=== PATIENT | female | born 1980 | race African-American/Black ===

== ENCOUNTER 2018-01-03 18:44 | Emergency (ER) | payer MEDICAID ==
[~2018-01-03] VITALS: Ht 180.3 cm; Wt 138.8 kg
[~2018-01-03 18:44] MED LIST: IBUPROFEN800 MG ORAL; NITROFURANTOIN100 M2 ORAL; NKM; ONDANSETRON ODT4 MG ORAL; PRENATA CHEWAB1 EACH PO
[2018-01-03] MEDS ORDERED: Tylenol #3 tab (300mg/30mg) ORAL ONE (20:00)
[2018-01-03] MEDS ORDERED: LIDODERM700 M1 TOPIC (20:53)
[2018-01-03] MEDS ORDERED: ACETAMINOPHEN-1 EAC1 ORAL (20:53)
[2018-01-03 21:07] VITALS: BP 120/78
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
== END 2018-01-03 21:15 | disposition home or self-care (01) ==
LOC: EMR 19:44
DX: M54.5 Low back pain (principal); R51 Headache; V43.62XA Car passenger injured in collision with other type car in traffic accident, initial encounter; Y92.488 Other paved roadways as the place of occurrence of the external cause
CPT/HCPCS: 99283

== ENCOUNTER 2019-11-10 09:35 | Emergency (ER) | payer MEDICAID ==
[~2019-11-10] VITALS: Ht 180.3 cm; Wt 135.2 kg
[~2019-11-10 09:35] MED LIST changes: +ACETAMINOPHEN-1 EAC1 ORAL; +LIDODERM700 M1 TOPIC
--- NOTE | 2019-11-10 09:48 | NUR ---
ED Nurse Note: Patient walked in to ER c/o bump on the posterior thigh x 5 days; reports no redness or pain. Patient stated she 10 weeks patient, present calm, VSS at this time.
[2019-11-10 09:50] VITALS: BP 133/73
--- NOTE | 2019-11-10 10:00 | Emergency Room Report ---
History of Present Illness General Chief Complaint: Skin Rash/Abscess Source: Patient Present Illness HPI Disclaimer: Please note that this report is being documented using DRAGON technology. This can lead to erroneous entry secondary to incorrect interpretation by the dictating instrument. HPI: 39-year-old female presents for evaluation of swelling on the left leg. She noticed it 5 days ago. Reports a nontender soft mass on the leg that she never noticed before. Just wants to know what it is. Denies recent itching, skin breakdown, tearing, injury, fever, chills. 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 No other complaints or concerns at this time Allergies: Coded Allergies: No Known Allergies (Unverified , 08/02/14) COVID-19 Screening Contact w/high risk pt: No Recent Travel to affected area: No Experienced COVID-19 symptoms?: No COVID-19 Testing performed LOCKSTITCH BINDER: No Patient History Last Menstrual Period: 2 months ago Now: Yes : 8 Para: 1 Nursing Documentation-PMH Past Medical History: No Stated History Review of Systems All Other Systems: negative except mentioned in HPI Physical Exam Vital Signs Date Time Temp Pulse Resp B/P (MAP) Pulse Ox O2 Delivery O2 Flow Rate FiO2 11/10/19 09:42 98.4 81 15 133/73 (93) 99 Room Air General: Awake and alert, no acute distress HEENT: NC/AT. EOMI. Resp: Normal work of breathing Skin: There is a 3 x 3 cm soft mobile nontender raised mass palpable over the posterior aspect of the left thigh. No fluctuance. No overlying erythema. No skin breakdown. No tenderness. No edema. MSK: Normal tone and bulk. Moving all extremities. No obvious deformity. Neuro: Awake and alert. Mentating appropriately Sp02 EP Interpretation: reviewed Medical Decision Making Diagnostic Impression: Primary Impression: Soft tissue swelling Additional Impression: Lipoma ER Course Is a 39-year-old female presenting for evaluation of soft tissue swelling over the left leg. Physical exam and bedside ultrasound are consistent with a lipoma. No evidence of abscess, cellulitis, infectious skin pathology. I do not believe the patient requires emergent labs or imaging at this time. It is not causing her any discomfort at this time, she simply wanted to know what it was. I advised her that it may enlarge and cause her more discomfort that she should discuss with a general surgeon for possible excision otherwise may follow -up with her PMD. She understands and agrees with treatment plan. Diagnostic POCUS Bedside Ultrasound Diagnostics: Bedside US Exam performed: Soft Tissue Limited Indication: Abcess/Cellulitis Number of Views: Limited Interpreted by Emergency Physi: Yes Soft Tissue Limited Findings: No fluid collections, No abcess, No cobblestone appearance, No foreign body, Other - Soft tissue mass consistent with lipoma Impression: Other - Lipoma, no evidence of infection Electronically Signed by: Electronically signed by Dr. Bismark Martin Last Vital Signs Date Time Temp Pulse Resp B/P (MAP) Pulse Ox O2 Delivery O2 Flow Rate FiO2 11/10/19 09:50 98.4 15 133/73 99 Room Air 11/10/19 09:42 81 Disposition: HOME, SELF-CARE Condition: Stable Patient Instructions: Breast Self-Awareness Additional Instructions: Please follow-up with a primary care provider to discuss today's findings. Your exam is most consistent with a lipoma which may be evaluated by your PMD and a general surgeon if you wish for surgical removal. Return to the emergency department any new or worsening symptoms. Bismark Martin MD Nov 10, 2019 10:00
--- NOTE | 2019-11-10 10:05 | NUR ---
ED Nurse Note: Pt cleared by health care Provider for discharge. DC instructions/prescription was given and explained to pt and verbalized understanding of teachings. All medical deviecs such as ID band removed. Pt is AAO x4, ambulatory and left with all personal belongings.
== END 2019-11-10 10:04 | disposition home or self-care (01) ==
LOC: EMR 09:55
DX: O26.891 Other specified pregnancy related conditions, first trimester (principal); R22.42 Localized swelling, mass and lump, left lower limb; D17.24 Benign lipomatous neoplasm of skin and subcutaneous tissue of left leg; Z3A.00 Weeks of gestation of pregnancy not specified
CPT/HCPCS: 99282

== ENCOUNTER 2019-11-18 23:49 | Emergency (ER) | payer MEDICAID ==
[~2019-11-18] VITALS: Ht 180.3 cm; Wt 135.2 kg
--- NOTE | 2019-11-19 00:09 | NUR ---
ED Nurse Note: Pt ambulated to ED from home c/o bright red vaginal bleeding and 10/10 abdominal pain since 30 mins ago. Pt is 12 weeks . Pt denies trauma. VSS. Pt is A&Ox4. Pt placed on cardiac specialist
[2019-11-19] MEDS ORDERED: RHO (D) Immune Globulin 1500 Units IM ONE (00:30)
--- NOTE | 2019-11-19 00:30 | Emergency Room Report ---
History of Present Illness General Chief Complaint: Complications Source: Patient Present Illness HPI Patient is a 39-year-old female who presents after increased vaginal bleeding. She reports having onset of symptoms approximate 30 minutes prior to arrival. Prior history of Rh-. G9, P1 at 13 weeks. Reports having some abdominal cramping. Denies any prior bleeding episodes. She reports having recent ultrasound which was seen as normal. She is followed at [facility] and is scheduled to deliver at [facility]. Allergies: Coded Allergies: No Known Allergies (Unverified , 08/02/14) COVID-19 Screening Contact w/high risk pt: No Recent Travel to affected area: No Experienced COVID-19 symptoms?: No COVID-19 Testing performed LEGAL INTERNSHIP: No Patient History Past Medical History: see triage record Now: Yes : 9 Para: 1 Reviewed Nursing Documentation: PMH: Agreed; PSxH: Agreed Nursing Documentation-PMH Past Medical History: No Stated History Review of Systems All Other Systems: negative except mentioned in HPI Physical Exam Vital Signs Date Time Temp Pulse Resp B/P (MAP) Pulse Ox O2 Delivery O2 Flow Rate FiO2 11/18/19 23:53 98.1 76 18 116/84 (95) 100 Room Air Sp02 EP Interpretation: reviewed, normal General Appearance: normal inspection, well appearing, no apparent distress, alert, GCS 15, obese Head: atraumatic ENT: normal ENT inspection, hearing grossly normal, normal voice Neck: normal inspection, full range of motion, supple, no bony tend Respiratory: normal inspection, lungs clear, normal breath sounds, no respiratory distress, no retraction, no wheezing Cardiovascular #1: regular rate, rhythm, no edema Gastrointestinal: normal inspection, normal bowel sounds, non tender, soft, no guarding, no hernia Genitourinary: no CVA tenderness Musculoskeletal: normal inspection, back normal, normal range of motion Neurologic: alert, motor strength/tone normal, estimate clerk III-XII nml as tested, oriented x3, responsive, speech normal, normal inspection Psychiatric: normal inspection, judgement/insight normal, mood/affect normal Medical Decision Making Diagnostic Impression: Primary Impression: Threatened ER Course Patient presented for abdominal pain. Differential diagnosis include was not limited to , miscarriage, Rh immunization among others. Because of complexity of patient's case laboratory tests and imaging studies were ordered.Laboratory testing showed adequate hemoglobin. Pelvic ultrasound showed intrauterine approximately 12 weeks. Patient was advised to follow-up with her TRAVEL MANAGER for further evaluation and treatment. She advised to return if worse or increased bleeding. This medical record is generated with [employer] sales communications manager software. There may be some sales communications manager discrepancies related to use of this software Labs Test 11/19/19 00:30 11/19/19 00:48 White Blood Count 11.3 K/UL (4.8-10.8) Red Blood Count 3.84 M/UL (4.20-5.40) Hemoglobin 11.5 G/DL (12.0-16.0) Hematocrit 35.4 % (37.0-47.0) Mean Corpuscular Volume 92 FL (80-99) Mean Corpuscular Hemoglobin 30.0 PG (27.0-31.0) Mean Corpuscular Hemoglobin Concent 32.5 G/DL (32.0-36.0) Red Cell Distribution Width 12.4 % (11.6-14.8) Platelet Count 230 K/UL (150-450) Mean Platelet Volume 8.0 FL (6.5-10.1) Neutrophils (%) (Auto) 68.8 % (45.0-75.0) Lymphocytes (%) (Auto) 23.2 % (20.0-45.0) Monocytes (%) (Auto) 6.4 % (1.0-10.0) Eosinophils (%) (Auto) 1.1 % (0.0-3.0) Basophils (%) (Auto) 0.5 % (0.0-2.0) Prothrombin Time 9.9 SEC (9.30-11.50) Prothromb Time International Ratio 0.9 (0.9-1.1) Activated Partial Thromboplast Time 26 SEC (23-33) Sodium Level 138 MMOL/L (136-145) Potassium Level 3.5 MMOL/L (3.5-5.1) Chloride Level 102 MMOL/L (98-107) Carbon Dioxide Level 24 MMOL/L (21-32) Anion Gap 12 mmol/L (5-15) Blood Urea Nitrogen 5 mg/dL (7-18) Creatinine 0.7 MG/DL (0.55-1.30) Estimat Glomerular Filtration Rate > 60 mL/min (>60) Glucose Level 106 MG/DL (74-106) Calcium Level 8.5 MG/DL (8.5-10.1) Total Bilirubin 0.2 MG/DL (0.2-1.0) Aspartate Amino Transf (AST/SGOT) 13 U/L (15-37) Alanine Aminotransferase (ALT/SGPT) 14 U/L (12-78) Alkaline Phosphatase 93 U/L (46-116) Total Protein 7.1 G/DL (6.4-8.2) Albumin 3.1 G/DL (3.4-5.0) Globulin 4.0 g/dL Albumin/Globulin Ratio 0.8 (1.0-2.7) Lipase 118 U/L (73-393) Human Chorionic Gonadotropin, Quant 93643 mIU/mL (1-6) Urine Color Red Urine Appearance Cloudy Urine pH 5 (4.5-8.0) Urine Specific [place] 1.025 (1.005-1.035) Urine Protein 3+ (NEGATIVE) Urine Glucose (UA) Negative (NEGATIVE) Urine Ketones 1+ (NEGATIVE) Urine Blood 5+ (NEGATIVE) Urine Nitrite Negative (NEGATIVE) Urine Bilirubin Negative (NEGATIVE) Urine Urobilinogen 1 MG/DL (0.0-1.0) Urine Leukocyte Esterase 2+ (NEGATIVE) Urine RBC Tntc /HPF (0 - 2) Urine WBC 10-15 /HPF (0 - 2) Urine Squamous Epithelial Cells Moderate /LPF (NONE/OCC) Urine Bacteria Moderate /HPF (NONE) Last Vital Signs Date Time Temp Pulse Resp B/P (MAP) Pulse Ox O2 Delivery O2 Flow Rate FiO2 11/18/19 23:53 98.1 76 18 116/84 (95) 100 Room Air Status: improved Disposition: HOME, SELF-CARE Condition: Stable Referrals: NON PHYSICIAN (PCP) Alexander Varma MD Nov 19, 2019 00:30
[2019-11-19 00:47] LABS: BASOPHILS % (AUTO) 0.5 % (0.0-2.0); EOSINOPHILS % (AUTO) 1.1 % (0.0-3.0); HEMATOCRIT 35.4 % (37.0-47.0); HEMOGLOBIN 11.5 G/DL (12.0-16.0); LYMPHOCYTES % (AUTO) 23.2 % (20.0-45.0); MEAN CORPUSCULAR VOLUME 92 FL (80-99); MONOCYTES % (AUTO) 6.4 % (1.0-10.0); NEUTROPHILS % (AUTO) 68.8 % (45.0-75.0); PLATELET COUNT 230 K/UL (150-450); RED BLOOD COUNT 3.84 M/UL (4.20-5.40); RED CELL DISTRIBUTION WIDTH 12.4 % (11.6-14.8); WHITE BLOOD COUNT 11.3 K/UL (4.8-10.8)
[2019-11-19 00:54] LABS: APPEARANCE,URINE CLOUDY; BILIRUBIN, URINE NEGATIVE (NEGATIVE); COLOR,URINE RED; GLUCOSE, URINE (UA) NEGATIVE (NEGATIVE); KETONES,URINE 1+ (NEGATIVE); LEUKOCYTE ESTERASE ,URINE 2+ (NEGATIVE); NITRITE,URINE NEGATIVE (NEGATIVE); PH,URINE 5 (4.5-8.0); PROTEIN,URINE 3+ (NEGATIVE); UROBILINOGEN,URINE 1 MG/DL (0.0-1.0)
[2019-11-19 00:58] LABS: ANION GAP 12 mmol/L (5-15); BLOOD UREA NITROGEN 5 mg/dL (7-18); CALCIUM 8.5 MG/DL (8.5-10.1); CARBON DIOXIDE 24 MMOL/L (21-32); CHLORIDE 102 MMOL/L (98-107); CREATININE 0.7 MG/DL (0.55-1.30); POTASSIUM 3.5 MMOL/L (3.5-5.1); SODIUM 138 MMOL/L (136-145)
[2019-11-19 01:01] LABS: INR 0.9 (0.9-1.1)
[2019-11-19 01:03] LABS: ALANINE AMINOTRANSFERASE 14 U/L (12-78); ALBUMIN 3.1 G/DL (3.4-5.0); ALBUMIN/GLOBULIN RATIO 0.8 (1.0-2.7); ALKALINE PHOSPHATASE 93 U/L (46-116); ASPARTATE AMINO TRANSFERASE 13 U/L (15-37); BILIRUBIN,TOTAL 0.2 MG/DL (0.2-1.0)
--- NOTE | 2019-11-19 02:20 | NUR ---
ED Nurse Note: Pt resting in bed with eyes closed, non-labored breathing, awaiting US
--- NOTE | 2019-11-19 02:25 | NUR ---
ED Nurse Note: US at bedside
[2019-11-19 04:05] VITALS: BP 121/78
--- NOTE | 2019-11-19 04:05 | NUR ---
ER DISCHARGE NOTE: Patient is cleared to be discharged per ERMD, pt is aox4, on room air, with stable vital signs. pt was given dc and prescription instructions, pt was able to verbalize understanding, pt id band and iv site removed without complications. pt is able to ambulate with steady gait. pt took all belongings.
--- NOTE | 2019-11-19 04:12 | Diagnostic Imaging Report ---
EXAM: US First Trimester , Transabdominal and Transvaginal CLINICAL HISTORY: ABD PAIN TECHNIQUE: Real-time transabdominal and transvaginal obstetrical ultrasound of the maternal pelvis and a first trimester with image documentation. Transvaginal imaging was used for better evaluation of the fetus and adnexa. COMPARISON: No relevant prior studies available. FINDINGS: Gestation: There is a single living intrauterine . The heart rate is 186 bpm. The mean gestational sac diameter is 5.2 cm. The mean crown-rump length is 5.5 cm. Calculated ultrasound age 12 weeks 1 day. Gestational age by LMP 10 weeks 6 days. ROC: Estimated date of delivery by ultrasound 06/01/20. Placenta/amniotic fluid: Cannot be adequately evaluated due to the early gestational age. Uterus/cervix: The uterus measures 13.1 x 7.6 x 11.6 cm. Multiple intramural uterine fibroids measuring up to 2.5 cm in long axis. Ovaries: The right ovary is unremarkable measuring 3.0 x 1.5 x 2.5 cm. The left ovary is unremarkable measuring 4.5 x 2.6 x 3.3 cm. No mass. Free fluid: No free fluid. IMPRESSION: 1. Single living intrauterine with calculated ultrasound age of 12 weeks 1 day. 2. Estimated date of delivery by ultrasound is 06/01/20. 3. Multiple small uterine fibroids measuring up to 2.5 cm.
== END 2019-11-19 04:05 | disposition home or self-care (01) ==
LOC: EMR 11-19 00:07
DX: O20.9 Hemorrhage in early pregnancy, unspecified (principal); O34.11 Maternal care for benign tumor of corpus uteri, first trimester; D25.1 Intramural leiomyoma of uterus; Z3A.12 12 weeks gestation of pregnancy; O99.211 Obesity complicating pregnancy, first trimester; Z68.41 Body mass index [BMI] 40.0-44.9, adult
CPT/HCPCS: 36415; 76801; 76817; 80053; 81003; 83690; 84702; 85025; 85610; 85730; 86850; 86900; 86901; 87086; 96361; 96365; 96372; J7030; Z7502; 99284

== ENCOUNTER 2019-12-11 20:37 | Emergency (ER) | payer MEDICAID ==
[~2019-12-11] VITALS: Ht 180.3 cm; Wt 136.1 kg
--- NOTE | 2019-12-11 20:45 | NUR ---
ED Nurse Note: walked in to ed c/o LT second finger pain onset 30 days after hitting her finger on a door and the pain has not subsided. pt able to move finger. also complains of rt sided groin pain with unk cause onset 2030 today denies nvd. pt states recent . vss, nad, aaox4, ambulatory, ermd at bedside
--- NOTE | 2019-12-11 20:51 | NUR ---
ED Nurse Note: PER ERMD, NO URINE SAMPLE NEEDED AT THS TIME THE PATIENT HAD A RECENT .
[2019-12-11 20:52] VITALS: BP 121/72
--- NOTE | 2019-12-11 20:55 | Emergency Room Report ---
History of Present Illness General Chief Complaint: Pain Source: Patient Present Illness HPI 39-year-old female presents with left index finger pain patient 3 days ago got it caught in a gate, endorses achy pain that still remains worsened with movement alleviated throughout severity is mild, intermittent. Patient also states when she walked in the ED she coughed and noticed her right lower to mid abdomen hurt after that cough mild pain has since resolved aggravating factors appear to be the cough unknown relieving factors patient denies any other symptomatology Allergies: Coded Allergies: No Known Allergies (Unverified , 08/02/14) COVID-19 Screening Contact w/high risk pt: No Recent Travel to affected area: No Experienced COVID-19 symptoms?: No COVID-19 Testing performed OPTOMETRIST/PRACTICE OWNER: No Patient History Past Medical History: see triage record Last Menstrual Period: 11/2019 Now: No Reviewed Nursing Documentation: PMH: Agreed; PSxH: Agreed Review of Systems All Other Systems: negative except mentioned in HPI Physical Exam Vital Signs Date Time Temp Pulse Resp B/P (MAP) Pulse Ox O2 Delivery O2 Flow Rate FiO2 12/11/19 20:40 97.9 64 16 113/73 (86) 97 Room Air General Appearance: well appearing, no apparent distress Head: normocephalic, atraumatic ENT: hearing grossly normal, normal voice Neck: full range of motion, supple Respiratory: no respiratory distress, speaking full sentences Gastrointestinal: non tender, soft, no guarding, no rebound Musculoskeletal: other - Left upper extremity: 2+ radial pulse, no obvious deformity of the index finger, radial median ulnar nerve intact cap refill less than 3 seconds Neurologic: alert, normal gait Psychiatric: mood/affect normal Skin: no rash Medical Decision Making Diagnostic Impression: Primary Impression: Finger sprain Qualified Codes: S63.611A - Unspecified sprain of left index finger, initial encounter Additional Impression: Abdominal pain Qualified Codes: R10.9 - Unspecified abdominal pain ER Course 39-year-old female presents with right lower quadrant pain that has since resolved differential diagnosis includes appendicitis diverticulitis, phthisis abdomen soft nontender repeat exam unremarkable Left upper extremity most likely finger sprain will evaluate for fracture x-ray negative Expectant management disposition home with return precautions follow-up with PCP Other X-Ray Diagnostic Results Other X-Ray Diagnostic Results : X-Ray ordered: left finger # of Views/Limited Vs Complete: 3 View Indication: Pain EP Interpretation: Yes Interpretation: no dislocation, no soft tissue swelling, no fractures Impression: No acute disease Electronically Signed by: Sinan Clarke MD Last Vital Signs Date Time Temp Pulse Resp B/P (MAP) Pulse Ox O2 Delivery O2 Flow Rate FiO2 12/11/19 20:40 97.9 64 16 113/73 (86) 97 Room Air Disposition: HOME, SELF-CARE Condition: Stable Referrals: [facility] Patient Instructions: Abdominal Pain, Adult, Iium-ym-Avas, Finger Sprain, Easy- to-Read Additional Instructions: The patient was provided with discharge instructions, notified to follow-up with a primary care doctor and or specialist in the next 24-48 hours, and to return to the ED if they have worsening of their symptoms. Please note that this report is being documented using DRAGON technology. This can lead to erroneous entry secondary to incorrect interpretation by the dictating instrument. Sinan Clarke MD Dec 11, 2019 20:55
--- NOTE | 2019-12-11 20:55 | NUR ---
ED Nurse Note: xr at bedside
[2019-12-11 21:19] VITALS: BP 129/81
[2019-12-11 21:20] VITALS: BP 129/81
--- NOTE | 2019-12-11 21:20 | NUR ---
ER DISCHARGE NOTE: Patient is cleared to be discharged per ERMD, pt is aox4, on room air, with stable vital signs. pt was given dc instructions, pt was able to verbalize understanding, pt id band removed without complications. pt is able to ambulate with steady gait. pt took all belongings.
--- NOTE | 2019-12-12 13:10 | Diagnostic Imaging Report ---
EXAM: X-RAY XRAY Fingers 2-3v L CLINICAL HISTORY: Finger pain. COMPARISON: None FINDINGS: Total of free views of the left index finger were obtained. Alignment is anatomic. There is no fracture, bony lesions or erosions. Joint spaces are unremarkable. Mild soft tissue swelling around the second proximal phalanx. IMPRESSION: MILD SOFT TISSUE SWELLING. NO BONY ABNORMALITY.
== END 2019-12-11 21:20 | disposition home or self-care (01) ==
LOC: EMR 20:54
DX: S63.611A Unspecified sprain of left index finger, initial encounter (principal); R10.9 Unspecified abdominal pain; W23.0XXA Caught, crushed, jammed, or pinched between moving objects, initial encounter; Y93.89 Activity, other specified; Y92.9 Unspecified place or not applicable
CPT/HCPCS: 73140; Z7502; 99283

== ENCOUNTER 2020-06-23 12:54 | Emergency (ER) | payer MEDICAID ==
[~2020-06-23] VITALS: Ht 180.3 cm; Wt 131.5 kg
[2020-06-23 12:57] VITALS: BP 124/88
--- NOTE | 2020-06-23 13:19 | Emergency Room Report ---
History of Present Illness General Chief Complaint: Lower Extremity Injury Source: Patient Present Illness HPI 39-year-old female here with atraumatic right knee swelling and right calf pain for 4 days. Patient says that about 4 days ago she began to notice her right knee swelling up in her right calf becoming sore. Patient became concerned because her father was recently diagnosed with a DVT. No other family members have had blood clots. Patient is a smoker. No recent long car rides or plane rides. No recent surgeries. No submental hormones. No headache, vision changes, fevers, chills, chest pain, palpitations, shortness of breath, cough, back pain, abdominal pain, nausea, vomiting, diarrhea, dysuria, dyspnea. Allergies: Coded Allergies: No Known Allergies (Unverified , 08/02/14) COVID-19 Screening Contact w/high risk pt: No Recent Travel to affected area: No Experienced COVID-19 symptoms?: No COVID-19 Testing performed ONLINE JOURNALIST: No Patient History Last Menstrual Period: 4 days ago Now: No Nursing Documentation-[facility] Past Medical History: No Stated History Review of Systems All Other Systems: negative except mentioned in HPI Physical Exam Vital Signs Date Time Temp Pulse Resp B/P (MAP) Pulse Ox O2 Delivery O2 Flow Rate FiO2 06/23/20 12:57 98.1 63 18 124/88 (100) 99 Room Air Sp02 EP Interpretation: reviewed, normal General Appearance: no apparent distress, alert, non-toxic Head: normocephalic, atraumatic Eyes: bilateral eye normal inspection, bilateral eye PERRL ENT: hearing grossly normal, normal pharynx, no angioedema, normal voice Neck: full range of motion, supple/symm/no masses Respiratory: chest non-tender, lungs clear, normal breath sounds, speaking full sentences Cardiovascular #1: regular rate, rhythm, no edema Cardiovascular #2: 2+ carotid (R), 2+ carotid (L), 2+ radial (R), 2+ radial (L), 2+ dorsalis pedis (R), 2+ dorsalis pedis (L) Gastrointestinal: normal bowel sounds, non tender, soft, non-distended, no guarding, no rebound Rectal: deferred Genitourinary: normal inspection, no CVA tenderness Musculoskeletal: back normal, normal range of motion, calf tenderness, gait/station normal, other - Mild right calf pain on palpation and with foot dorsiflexion. Small left-sided right knee effusion Neurologic: alert, motor strength/tone normal, oriented x3, sensory intact, responsive, speech normal Psychiatric: judgement/insight normal, memory normal, mood/affect normal, no suicidal/homicidal ideation Lymphatic: no adenopathy Medical Decision Making ER Course X-ray right knee: No acute bony or joint abnormalities. No effusions 39-year-old female here with atraumatic right lower extremity pain. Currently awaiting ultrasound rule out DVT. Signed out to oncoming physician. Last Vital Signs Date Time Temp Pulse Resp B/P (MAP) Pulse Ox O2 Delivery O2 Flow Rate FiO2 06/23/20 12:57 98.1 63 18 124/88 (100) 99 Room Air Jeff Adame M.D. Jun 23, 2020 13:19
--- NOTE | 2020-06-23 15:24 | Diagnostic Imaging Report ---
Indication: Right leg pain Technique: Grayscale and duplex images of the right lower extremity veins Comparison: None Findings: On the right, grayscale and duplex images demonstrate no evidence of intraluminal thrombus. Normal phasic Doppler waveforms, demonstrating normal augmentation response and no evidence of valvular insufficiency. Greater saphenous vein(s) and tibial veins are patent. Normal compressibility. Incidentally noted is a right knee joint effusion Impression: Negative for evidence of lower extremity deep venous thrombosis bilaterally
--- NOTE | 2020-06-23 15:38 | Diagnostic Imaging Report ---
Indication: Right knee pain Technique: 3 views of the right knee Comparison: None Findings: There is a suprapatellar effusion. No acute fracture. No dislocation. There are mild degenerative proliferative changes posteriorly. Impression: Joint effusion No acute bony trauma
== END 2020-06-23 14:48 | disposition home or self-care (01) ==
LOC: EMR 13:41
DX: M25.561 Pain in right knee (principal); M79.661 Pain in right lower leg; M25.461 Effusion, right knee; F17.200 Nicotine dependence, unspecified, uncomplicated
CPT/HCPCS: 73562; 93971; Z7502; 99284